=== PATIENT | male | born 1995 | race Caucasian/White ===

== ENCOUNTER → 2017-10-01 | Outpatient (CLI) | payer BC ==
--- NOTE | 2017-10-04 20:34 | Physician Query-Final Dx ---
WICHO RODRIGEZ 10/04/[birth year]: Clinic Account Progress/Dx Physician Query: Please give diagnosis Date of Service Oct 01, 2017 at 11:44 TIFFANIE ADAM MD 10/07/17 0736: Clinic Account Progress/Dx DIAGNOSIS: Diagnosis 1. Varicella as a child, Needing documentation WICHO RODRIGEZ Oct 04, 2017 20:34 TIFFANIE ADAM MD Oct 07, 2017 07:36
== END ==
LOC: LAB 11:44
PROVIDERS: ATTEND Family Medicine
DX: Z02.89 Encounter for other administrative examinations (principal)
CPT/HCPCS: 36415; 86787

== ENCOUNTER → 2020-02-12 | Outpatient (CLI) | payer BC, OTHER | LOC: LAB 10:00 | PROVIDERS: ATTEND Family Medicine | DX: R53.81 Other malaise (principal) | CPT/HCPCS: 36415; 83036; 84443 ==

== ENCOUNTER → 2020-03-25 | Outpatient (CLI) | payer OTHER | LOC: LAB 08:44 | PROVIDERS: ATTEND Family Medicine | DX: R53.81 Other malaise (principal) | CPT/HCPCS: 36415; 84402; 84403 ==